=== PATIENT | male | born 1975 | race Caucasian/White ===

== ENCOUNTER 2016-06-29 15:02 | Emergency (ER) | payer OTHER ==
[2016-06-29 15:10] VITALS: RESP 18
--- NOTE | 2016-06-29 15:20 | ED ---
General Adult HPI - General Chief complaint: Skin/Abscess/Foreign Body Stated complaint: [facility] - PUNCTURE WOUND Time Seen by Provider: 06/29/16 15:06 Source: patient, RN notes reviewed Mode of arrival: EMS Limitations: no limitations - History of Present Illness Initial comments: Patient is a 41-year-old male who presents emergency room today with a chief complaint of a puncture wound to the left hand. 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 Patient does admit that his tetanus is up-to-date. He does admit that he is right-handed. He does admits to pain locally to the left hand area. He denies any other complaints or associated symptoms at this time. Patient denies any recent fever, chills, shortness of breath, chest pain, back pain, abdominal pain, nausea or vomiting, numbness or tingling, dysuria or hematuria, constipation or diarrhea, headaches or visual changes, or any other complaints. - Related Data Previous Rx's Medication Instructions Recorded Ciprofloxacin HCl [Cipro] 500 mg PO Q12HR #20 day 06/29/16 Hydrocodone/Acetaminophen [Nunda 1 each PO Q6HR PRN #6 tab 06/29/16 5-325] Allergies Allergy/AdvReac Type Severity Reaction Status Date / Time codeine Allergy Nausea & Verified 06/29/16 15:40 Vomiting Penicillins AdvReac Unknown Verified 06/29/16 15:40 Review of Systems ROS Statement: Those systems with pertinent positive or pertinent negative responses have been documented in the HPI. ROS Other: All systems not noted in ROS Statement are negative. Past Medical History Additional Past Medical History / Comment(s): migraines History of Any Multi-Drug Resistant Organisms: None Reported Past Surgical History: No Surgical Hx Reported Past Psychological History: No Psychological Hx Reported Smoking Status: Current every day smoker Past Alcohol Use History: Occasional Past Drug Use History: None Reported General Exam - General Exam Comments Initial Comments: General: The patient is awake and alert, in no distress, and does not appear acutely ill. Neck: The neck is supple, there is no tenderness or JVD. Cardiovascular: There is a regular rate and rhythm. No murmur, rub or gallop is appreciated. Respiratory: Lungs are clear to auscultation, respirations are non-labored, breath sounds are equal. No wheezes, stridor, rales, or rhonchi. Musculoskeletal: shows full range of motion. Sensation intact. Cap refill less than 2 seconds. Pulses equal bilaterally 2+. Strength 5/5 in all areas. Neurological: A&O x 3. CN II-XII intact, There are no obvious motor or sensory deficits. Coordination appears grossly intact. Speech is normal. Skin: patient does have a 1 cm round puncture wound to the webspace between the first and second digit of the left hand. No active bleeding. Psychiatric: Normal mood and affect. Limitations: no limitations Course Vital Signs 06/29/16 15:06 Temperature 97.5 F L Pulse Rate 84 Respiratory 18 Rate Blood Pressure 133/65 O2 Sat by Pulse 99 Oximetry Medical Decision Making - Medical Decision Making patient's x-ray reviewed does show possible foreign body. No acute fracture dislocation. Patient does have puncture wound between the first and second digit. Patient's wound was irrigated here in the emergency room by nursing staff and closed with Steri-Strips. Case discussed in detail with attending physician Dr. Woodward. At this time patient will be recommended to follow-up with orthopedics tomorrow for possible foreign body removal and further evaluation. Patient will be started on antibiotics in the emergency room does have an ALLERGY to penicillins will be given a prescription for Cipro. Advised return for any other concerns. He states understanding and is in agreement. Disposition Clinical Impression: Puncture wound Disposition: HOME SELF-CARE Condition: Good Instructions: Puncture Wound (ED) Additional Instructions: Please use medication as discussed. Please follow-up with orthopedics tomorrow. Please return to emergency room if the symptoms increase or worsen or for any other concerns. Prescriptions: Ciprofloxacin HCl [Cipro] 500 mg PO Q12HR #20 day Hydrocodone/Acetaminophen [Nunda 5-325] 1 each PO Q6HR PRN #6 tab PRN Reason: Pain Referrals: None,Stated [Primary Care Provider] - 1-2 days Yuri Hall DO [Doctor of Osteopathic Medicine] - 1-2 days Time of Disposition: 16:17
--- NOTE | 2016-06-29 15:33 | XR ---
EXAMINATION TYPE: XR hand complete LT DATE OF EXAM: 06/29/2016 3:25 PM CLINICAL HISTORY: Puncture injury with pain. TECHNIQUE: Frontal, lateral and oblique images of the left hand are obtained. COMPARISON: None. FINDINGS: There is no acute fracture/dislocation evident in the left hand. The joint spaces in the l eft hand appear within normal limits. Lucency consistent with air correlates with history of puncture injury is seen in soft tissues near level of first and second metacarpals. On oblique view cannot ex clude 3 mm curvilinear foreign body just lateral to the second metacarpal. IMPRESSION: As above .
[2016-06-29 16:34] VITALS: BP 131/84; PULSE 57; TEMP 98.3
== END 2016-06-29 16:34 | disposition home or self-care (01) ==
LOC: EC 15:02
DX: S61.432A Puncture wound without foreign body of left hand, initial encounter (principal); F17.200 Nicotine dependence, unspecified, uncomplicated; Z88.0 Allergy status to penicillin; Z88.5 Allergy status to narcotic agent; W23.0XXA Caught, crushed, jammed, or pinched between moving objects, initial encounter; Y99.0 Civilian activity done for income or pay
CPT/HCPCS: 99283

== ENCOUNTER → 2016-07-06 | Outpatient (CLI) | payer OTHER ==
--- NOTE | 2016-07-06 08:28 | CT ---
EXAMINATION TYPE: CT hand LT wo con DATE OF EXAM: 07/06/2016 7:51 AM COMPARISON: Plain films of the left hand dated 06/29/2016 HISTORY: foreign body CT DLP: 106 mGycm Automated exposure control for dose reduction was used. TECHNIQUE: Unenhanced CT of the left hand was performed with bone and soft tissue window settings sub mitted in the axial coronal and sagittal planes. At a separate workstation 3-D reconstruction was als o seen. FINDINGS: 5 mm radiopaque density is noted directly adjacent to the third metacarpal palmar aspect compatible w ith the performed body. No additional radiopaque foreign bodies identified. There is no evidence for fracture. Previously noted puncture wounds demonstrate interval healing. No unusual collections are e vident. IMPRESSION: 5 MM RADIOPAQUE FOREIGN BODY DISCUSSED ABOVE.
== END | disposition home or self-care (01) ==
LOC: RADCTMAIN 07:25
PROVIDERS: ATTEND Orthopaedic Surgery
DX: S61.442A Puncture wound with foreign body of left hand, initial encounter (principal)

== ENCOUNTER 2018-02-17 17:16 | Emergency (ER) | payer BC ==
[2018-02-17] MEDS ORDERED: diphenhydrAMINE 50 MG/ML 1 ML VIAL IVP STA (17:34)
[2018-02-17] MEDS ORDERED: SODIUM CHLORIDE 0.9% 1,000 ML IV STA (17:34)
[2018-02-17] MEDS ORDERED: PROCHLORPERAZINE 10 MG TAB PO STA (17:36)
[2018-02-17 18:29] LABS: Basophils % (A) 0 %; Eosinophils # (A) 0.1 k/uL (0-0.7); Eosinophils % (A) 1 %; HCT 47.2 % (39.0-53.0); HGB 15.4 gm/dL (13.0-17.5); Lymphocytes # (A) 0.8 k/uL (1.0-4.8); Lymphocytes % (A) 7 %; MCH 33.5 pg (25.0-35.0); MCHC 32.7 g/dL (31.0-37.0); MCV 102.5 fL (80.0-100.0); Macrocytosis Slight; Mean Platelet Volume 7.1; Monocytes # (A) 0.4 k/uL (0-1.0); Monocytes % (A) 4 %; Neutrophils % (A) 88 %; Platelet Count 232 k/uL (150-450); RDW 12.6 % (11.5-15.5); WBC 11.4 k/uL (3.8-10.6)
[2018-02-17 18:39] LABS: Anion Gap 7 mmol/L; Blood Urea Nitrogen 12 mg/dL (9-20); Calcium 9.8 mg/dL (8.4-10.2); Carbon Dioxide 24 mmol/L (22-30); Chloride 108 mmol/L (98-107); Glucose 101 mg/dL (74-99); Magnesium 1.8 mg/dL (1.6-2.3); Potassium 4.6 mmol/L (3.5-5.1); Sodium 139 mmol/L (137-145)
[2018-02-17 19:08] LABS: Partial Thromboplastin Time 23.9 sec (22.0-30.0); Prothrombin Time 10.3 sec (9.0-12.0)
--- NOTE | 2018-02-17 19:29 | CT ---
EXAMINATION TYPE: CT brain wo con DATE OF EXAM: 02/17/2018 COMPARISON: 01/02/1712 HISTORY: Headache, nausea, vomiting. CT DLP: 1126 mGycm. Automated Exposure Control for Dose Reduction was Utilized. TECHNIQUE: CT scan of the head is performed without contrast. FINDINGS: Ventricles and sulci appear normal. There is no mass effect nor midline shift. There is no sign of intracranial hemorrhage. Calvarium is intact. IMPRESSION: Negative CT scan of the brain. No change.
--- NOTE | 2018-02-17 19:44 | ED ---
Headache HPI - General Chief Complaint: Headache Stated Complaint: headache/vomiting Time Seen by Provider: 02/17/18 17:24 Mode of arrival: ambulatory Limitations: no limitations - History of Present Illness Initial Comments: Patient is a 42-year-old male presenting for headache. The patient states that it started on Sunday and was more of a gradual onset. He has not tried any medications and this is secondary to nausea or vomiting. He states that he stood up today and passed out and he states that he is unsure how long it lasted and that the headache is a posterior sensation of this headache consistent with prior headaches in his been constant. He denies any chest pain or shortness of breath as well. He also states that he has a history of brain aneurysms with bleeding in the past that was detected by lumbar puncture. - Related Data Home Medications Medication Instructions Recorded Confirmed No Known Home Medications 02/17/18 02/17/18 Allergies Allergy/AdvReac Type Severity Reaction Status Date / Time acetaminophen Allergy Unknown Verified 02/17/18 17:37 [From Darvocet-N] codeine Allergy Nausea & Verified 02/17/18 17:37 Vomiting propoxyphene Allergy Unknown Verified 02/17/18 17:37 [From Darvocet-N] Penicillins AdvReac Unknown Verified 02/17/18 17:37 Review of Systems ROS Statement: Those systems with pertinent positive or pertinent negative responses have been documented in the HPI. Constitutional: Negative for chills, fatigue and fever. HENT: Negative for congestion. Respiratory: Negative for chest tightness, shortness of breath and wheezing. Negative for cough Cardiovascular: Negative for chest pain and palpitations. Positive for syncope Gastrointestinal: Negative for abdominal pain. Negative for abdominal distention , diarrhea, positive for nausea and vomiting. Genitourinary: Negative for dysuria. Musculoskeletal: Negative for back pain, neck pain and neck stiffness. Skin: Negative for color change. Neurological: Negative for dizziness, speech difficulty, weakness and light- headedness. Positive for headache Psychiatric/Behavioral: Negative for agitation and confusion. Negative for anxiety ROS Other: All systems not noted in ROS Statement are negative. Past Medical History Additional Past Medical History / Comment(s): migraines History of Any Multi-Drug Resistant Organisms: None Reported Past Surgical History: No Surgical Hx Reported Past Psychological History: No Psychological Hx Reported Smoking Status: Current every day smoker Past Alcohol Use History: Occasional Past Drug Use History: None Reported General Exam - General Exam Comments Initial Comments: Constitutional: Pt is oriented to person, place, and time. Pt appears well- developed and well-nourished. No distress. HENT: Head: Normocephalic and atraumatic. Eyes: EOM are normal. Neck: Normal range of motion. Neck supple. Cardiovascular: Normal rate, regular rhythm, S1 normal, S2 normal and normal heart sounds. Exam reveals no gallop and no friction rub. No murmur heard. Pulmonary/Chest: Effort normal and breath sounds normal. No tachypnea and no bradypnea. No respiratory distress. No wheezes or rales noted. Abdominal: Soft. Bowel sounds are normal. Pt exhibits no shifting dullness, no distension, no pulsatile liver, no fluid wave, no abdominal bruit and no ascites. There is no tenderness. There is no rigidity, no rebound, no guarding, no tenderness at McBurney's point and negative Thompson's sign. Musculoskeletal: Normal range of motion. Neurological: Pt is alert and oriented to person, place, and time. No cranial nerve deficit. Skin: Skin is warm and dry. No rash noted. Pt is not diaphoretic. No erythema. No pallor. Psychiatric: Pt has a normal mood and affect. Pt behavior is normal. Thought content normal. Limitations: no limitations Course Vital Signs 02/17/18 02/17/18 02/17/18 17:20 20:49 21:27 Temperature 97.8 F 98.0 F Pulse Rate 88 61 74 Respiratory 20 18 18 Rate Blood Pressure 138/78 121/85 137/93 O2 Sat by Pulse 99 99 97 Oximetry Medical Decision Making - Medical Decision Making Laboratory studies showed that there is no significant electrolyte derangements and from a cardiac standpoint, troponin was negative and EKG had no arrhythmia findings. CTA of the head and neck were also negative for acute pathology. However, there is significant concern that the patient could still have intracranial bleeding as he reports to having had this in the past. Patient was advised that lumbar puncture would be necessary and he currently declined. Nonetheless, because there is not neurologic coverage here at this facility, patient needed to be transferred. Case is discussed with physician Dr. Ahuja at [facility] who kindly accepted transfer. Patient will be transferred by ambulance. - Lab Data Result diagrams: 02/17/18 18:14 02/17/18 18:14 Lab Results 02/17/18 02/17/18 02/17/18 Range/Units 18:14 18:14 18:14 WBC 11.4 H (3.8-10.6) k/uL RBC 4.60 (4.30-5.90) m/uL Hgb 15.4 (13.0-17.5) gm/dL Hct 47.2 (39.0-53.0) % MCV 102.5 H (80.0-100.0) fL MCH 33.5 (25.0-35.0) pg MCHC 32.7 (31.0-37.0) g/dL RDW 12.6 (11.5-15.5) % Plt Count 232 (150-450) k/uL Neutrophils % 88 % Lymphocytes % 7 % Monocytes % 4 % Eosinophils % 1 % Basophils % 0 % Neutrophils # 10.0 H (1.3-7.7) k/uL Lymphocytes # 0.8 L (1.0-4.8) k/uL Monocytes # 0.4 (0-1.0) k/uL Eosinophils # 0.1 (0-0.7) k/uL Basophils # 0.0 (0-0.2) k/uL Macrocytosis Slight PT (9.0-12.0) sec INR (<1.2) APTT (22.0-30.0) sec Sodium 139 (137-145) mmol/L Potassium 4.6 (3.5-5.1) mmol/L Chloride 108 H (98-107) mmol/L Carbon Dioxide 24 (22-30) mmol/L Anion Gap 7 mmol/L BUN 12 (9-20) mg/dL Creatinine 0.85 (0.66-1.25) mg/dL Est GFR (CKD-EPI)AfAm >90 (>60 ml/min/1.73 sqM) Est GFR (CKD-EPI)NonAf >90 (>60 ml/min/1.73 sqM) Glucose 101 H (74-99) mg/dL Calcium 9.8 (8.4-10.2) mg/dL Magnesium 1.8 (1.6-2.3) mg/dL Troponin I <0.012 (0.000-0.034) ng/mL 02/17/18 Range/Units 18:45 WBC (3.8-10.6) k/uL RBC (4.30-5.90) m/uL Hgb (13.0-17.5) gm/dL Hct (39.0-53.0) % MCV (80.0-100.0) fL MCH (25.0-35.0) pg MCHC (31.0-37.0) g/dL RDW (11.5-15.5) % Plt Count (150-450) k/uL Neutrophils % % Lymphocytes % % Monocytes % % Eosinophils % % Basophils % % Neutrophils # (1.3-7.7) k/uL Lymphocytes # (1.0-4.8) k/uL Monocytes # (0-1.0) k/uL Eosinophils # (0-0.7) k/uL Basophils # (0-0.2) k/uL Macrocytosis PT 10.3 (9.0-12.0) sec INR 1.0 (<1.2) APTT 23.9 (22.0-30.0) sec Sodium (137-145) mmol/L Potassium (3.5-5.1) mmol/L Chloride (98-107) mmol/L Carbon Dioxide (22-30) mmol/L Anion Gap mmol/L BUN (9-20) mg/dL Creatinine (0.66-1.25) mg/dL Est GFR (CKD-EPI)AfAm (>60 ml/min/1.73 sqM) Est GFR (CKD-EPI)NonAf (>60 ml/min/1.73 sqM) Glucose (74-99) mg/dL Calcium (8.4-10.2) mg/dL Magnesium (1.6-2.3) mg/dL Troponin I (0.000-0.034) ng/mL - EKG Data EKG Comments: EKG shows normal sinus rhythm with a rate of 62 bpm, MD interval 160, QRS 114, QTC 387. There are no significant ST depressions or elevations. Disposition Clinical Impression: Syncope, Headache Disposition: OTHER INSTITUTION NOT DEFINED Condition: Good Instructions: Acute Headache (ED) Referrals: Jonathan Torres MD [Primary Care Provider] - 1-2 days - Out of Hospital Transfer - Req. Specs Out of Hospital Transfer - Requested Specifics: Other Emergency Center ([facility])
--- NOTE | 2018-02-17 20:38 | CT ---
EXAMINATION TYPE: CT angio head neck DATE OF EXAM: 02/17/2018 HISTORY: Headache, nausea, vomiting. COMPARISON: CT DLP: 478.2 mGycm. Automated Exposure Control for Dose Reduction was Utilized. TECHNIQUE: CTA scan of the neck is performed with IV Contrast, patient injected with 65 mL of Isovue 370, axial images are obtained, coronal and sagittal reformatted images are reviewed. Three-D recons tructed images are created on an independent workstation and reviewed. FINDINGS: There is normal branching pattern of the great vessels on the aortic arch. There is bilateral patency of the subclavian arteries. There is arterial flow in the common internal and external carotid arter ies bilaterally. Carotid artery bifurcations are widely patent. There is symmetric arterial opacifica tion of the vertebral arteries. There is no evidence of carotid or vertebral artery aneurysm or disse ction. There is patency of the vertebrobasilar artery system. There is arterial flow in the anterior middle and posterior cerebral arteries. There is normal contra st opacification of the venous sinuses. I see no evidence of intracranial stenosis. There is no sign of intracranial aneurysm or neovascularity. IMPRESSION: Normal CT angiogram of the neck. Normal CT angiogram of the brain.
[2018-02-17 20:50] VITALS: RESP 18
[2018-02-17 21:28] VITALS: BP 137/93; PULSE 74; TEMP 98
== END 2018-02-17 21:40 | disposition other institution (70) ==
LOC: EC 17:16
DX: R51 Headache (principal); R55 Syncope and collapse; F17.200 Nicotine dependence, unspecified, uncomplicated; Z91.19 Patient's noncompliance with other medical treatment and regimen; Z88.0 Allergy status to penicillin; Z88.5 Allergy status to narcotic agent; Z88.6 Allergy status to analgesic agent; Z86.79 Personal history of other diseases of the circulatory system
CPT/HCPCS: 36415; 93005; 80048; 83735; 84484; 85025; 85610; 85730; 70496; 70450; 70498; 99285; 96374; 96361 ×3; S0183; J1200; Q9967

== ENCOUNTER 2019-12-21 10:21 | Emergency (ER) | payer BC ==
[2019-12-21 10:38] VITALS: RESP 14
[2019-12-21] MEDS ORDERED: METOCLOPRAMIDE 5 MG/ML 2 ML VIAL IVP STA (10:41)
[2019-12-21] MEDS ORDERED: diphenhydrAMINE 50 MG/ML 1 ML VIAL IVP STA (10:41)
[2019-12-21] MEDS ORDERED: HYDROmorphone 0.5 MG/0.5 ML SYRINGE IVP STA ×2 (10:41→12:08)
--- NOTE | 2019-12-21 10:48 | ED ---
Headache HPI - General Chief Complaint: Headache Stated Complaint: Nausea,Vomiting Time Seen by Provider: 12/21/19 10:29 Mode of arrival: EMS Limitations: no limitations - History of Present Illness Initial Comments: 44yo male with history of "leaking vessel" 2007 diagnosed at [facility], normal CTA 2019 without aneursym with normal work up at [facility] in 2019 after transfer for headache, hx of chronic migraines since age 19 presenting to the ER today for cc of headache, states that started gradually yesterday. Pt states that yesteday he woke up with neck tension he states that how all of his headaches start, denies anterior neck pain, or severe pain/stiffness. Patient states just feel like muscle tension. Patient states then gradually the headache began and worsened throughout the day. Patient states when he headache persisted and was similar in characteristic to the headache he experienced last year and presented to the ER he came to the ER for treatment. Endorses nausea, denies vision change. Admits to light sensitivity. Patient denies double vision Patient denies weakness, sensation deficits, facial asymmetry. Patient denies additional complaints. Upon arrival he appears uncomfortable, but not in distress-light dim as patient is light sensitive. Given zofran by EMS. - Related Data Home Medications Medication Instructions Recorded Confirmed No Known Home Medications 12/21/19 12/21/19 Allergies Allergy/AdvReac Type Severity Reaction Status Date / Time acetaminophen Allergy Unknown Verified 12/21/19 12:01 [From Darvocet-N] codeine Allergy Nausea & Verified 12/21/19 12:01 Vomiting propoxyphene Allergy Unknown Verified 12/21/19 12:01 [From Darvocet-N] Penicillins AdvReac Unknown Verified 12/21/19 12:01 Review of Systems ROS Statement: Those systems with pertinent positive or pertinent negative responses have been documented in the HPI. ROS Other: All systems not noted in ROS Statement are negative. Past Medical History Additional Past Medical History / Comment(s): migraines History of Any Multi-Drug Resistant Organisms: None Reported Past Surgical History: No Surgical Hx Reported Past Psychological History: No Psychological Hx Reported Smoking Status: Former smoker Past Alcohol Use History: Occasional Past Drug Use History: None Reported General Exam - General Exam Comments Initial Comments: General: The patient is awake and alert, in no distress Eye: +3 mm pupils are equal, round and reactive to light, extra-ocular movements are intact. No nystagmus. There is normal conjunctiva bilaterally. No signs of icterus. Ears, nose, mouth and throat: There are moist mucous membranes and no oral lesions. Neck: The neck is supple, there is no tenderness or JVD. No nuchal rigidity Cardiovascular: There is a regular rate and rhythm. No murmur, rub or gallop is appreciated. Respiratory: Lungs are clear to auscultation, respirations are non-labored, breath sounds are equal. No wheezes, stridor, rales, or rhonchi. Gastrointestinal: Soft, non-distended, non-tender abdomen without masses or organomegaly noted. There is no rebound or guarding present. Musculoskeletal: Normal ROM, no tenderness. Strength 5/5 of the upper or lower extremities equal comparison bilaterally. Sensation intact of the upper or lower extremities equal comparison bilaterally. Radial pulses equal bilaterally 2+. Neurological: A&O x 3. CN II-XII intact, no pronator drift, finger to nose with a coordinated gait without ataxia. There are no obvious motor or sensory deficits. Coordination appears grossly intact. Speech is normal. Skin: Skin is warm and dry and no rashes or lesions are noted. Psychiatric: Cooperative, appropriate mood & affect, normal judgment. Limitations: no limitations Course Vital Signs 12/21/19 12/21/19 12/21/19 10:23 12:04 12:55 Temperature 98.0 F 98.0 F 97.6 F Pulse Rate 64 57 L 53 L Respiratory 14 14 14 Rate Blood Pressure 133/84 121/77 119/53 O2 Sat by Pulse 99 98 98 Oximetry 12/21/19 12/21/19 13:47 14:11 Temperature 97.6 F Pulse Rate 69 58 L Respiratory 14 14 Rate Blood Pressure 118/79 122/80 O2 Sat by Pulse 98 96 Oximetry - Reevaluation(s) Reevaluation #1: 1st reevaluation: down to 06/21 from a "01/12" 12/21/19 Reevaluation #2: headache 05/22 after toradol, pt requesting discharge, stating he doesnt want LP or to be transferred states this "happens every time" 12/21/19 Medical Decision Making - Medical Decision Making labs stable. CT (-) x 2. No focal deficits. Hx chronic headaches. Discussed hx wiht Dr. Baker at this time given patient refuses transfer, he prefers to go home/does not want admission for symptoms control, has hx of migraines, improvement in ER with (-) images/refusal LP we feel patient is stable for discharge. - Lab Data Result diagrams: 12/21/19 10:47 12/21/19 10:47 Lab Results 12/21/19 12/21/19 12/21/19 Range/Units 10:47 10:47 10:47 WBC 11.6 H (3.8-10.6) k/uL RBC 4.32 (4.30-5.90) m/uL Hgb 14.9 (13.0-17.5) gm/dL Hct 45.1 (39.0-53.0) % MCV 104.3 H (80.0-100.0) fL MCH 34.6 (25.0-35.0) pg MCHC 33.1 (31.0-37.0) g/dL RDW 12.4 (11.5-15.5) % Plt Count 232 (150-450) k/uL Neutrophils % 82 % Lymphocytes % 10 % Monocytes % 6 % Eosinophils % 0 % Basophils % 0 % Neutrophils # 9.4 H (1.3-7.7) k/uL Lymphocytes # 1.2 (1.0-4.8) k/uL Monocytes # 0.7 (0-1.0) k/uL Eosinophils # 0.0 (0-0.7) k/uL Basophils # 0.0 (0-0.2) k/uL Macrocytosis Slight PT 10.1 (9.0-12.0) sec INR 1.0 (<1.2) APTT 24.1 (22.0-30.0) sec Sodium 138 (137-145) mmol/L Potassium 3.6 (3.5-5.1) mmol/L Chloride 106 (98-107) mmol/L Carbon Dioxide 23 (22-30) mmol/L Anion Gap 9 mmol/L BUN 21 H (9-20) mg/dL Creatinine 0.82 (0.66-1.25) mg/dL Est GFR (CKD-EPI)AfAm >90 (>60 ml/min/1.73 sqM) Est GFR (CKD-EPI)NonAf >90 (>60 ml/min/1.73 sqM) Glucose 125 H (74-99) mg/dL Calcium 9.2 (8.4-10.2) mg/dL Total Bilirubin 1.0 (0.2-1.3) mg/dL AST 29 (17-59) U/L ALT 46 (4-49) U/L Alkaline Phosphatase 85 (38-126) U/L Total Protein 7.2 (6.3-8.2) g/dL Albumin 4.4 (3.5-5.0) g/dL Disposition Clinical Impression: Headache, Hx of migraine headaches Disposition: HOME SELF-CARE Condition: Good Instructions (If sedation given, give patient instructions): Acute Headache (ED) Additional Instructions: Please use medication as discussed. Please follow-up with family doctor in the next 2 days. Please return to emergency room if the symptoms increase or worsen or for any other concerns. Is patient prescribed a controlled substance at d/c from ED?: No Referrals: Jonathan Torres MD [Primary Care Provider] - 1-2 days Time of Disposition: 14:16
[2019-12-21 11:08] LABS: Partial Thromboplastin Time 24.1 sec (22.0-30.0); Prothrombin Time 10.1 sec (9.0-12.0)
[2019-12-21 11:15] LABS: ALT 46 U/L (4-49); AST 29 U/L (17-59); African American GFR (CKD) >90 (>60 ml/min/1.73 sqM); Albumin 4.4 g/dL (3.5-5.0); Alkaline Phosphatase 85 U/L (38-126); Anion Gap 9 mmol/L; Blood Urea Nitrogen 21 mg/dL (9-20); Calcium 9.2 mg/dL (8.4-10.2); Carbon Dioxide 23 mmol/L (22-30); Chloride 106 mmol/L (98-107); Glucose 125 mg/dL (74-99); Non-African American GFR(CKD) >90 (>60 ml/min/1.73 sqM); Potassium 3.6 mmol/L (3.5-5.1); Sodium 138 mmol/L (137-145); Total Protein 7.2 g/dL (6.3-8.2)
[2019-12-21 11:33] LABS: Basophils % (A) 0 %; Eosinophils % (A) 0 %; HCT 45.1 % (39.0-53.0); HGB 14.9 gm/dL (13.0-17.5); Lymphocytes # (A) 1.2 k/uL (1.0-4.8); Lymphocytes % (A) 10 %; MCH 34.6 pg (25.0-35.0); MCHC 33.1 g/dL (31.0-37.0); MCV 104.3 fL (80.0-100.0); Macrocytosis Slight; Mean Platelet Volume 7.4; Monocytes # (A) 0.7 k/uL (0-1.0); Monocytes % (A) 6 %; Neutrophils # (A) 9.4 k/uL (1.3-7.7); Neutrophils % (A) 82 %; Platelet Count 232 k/uL (150-450); RBC 4.32 m/uL (4.30-5.90); RDW 12.4 % (11.5-15.5); WBC 11.6 k/uL (3.8-10.6)
--- NOTE | 2019-12-21 11:55 | CT ---
EXAMINATION TYPE: CT brain wo con DATE OF EXAM: 12/21/2019 COMPARISON: None HISTORY: History of "vessel leak', Headache for 24 hourss, chronic headaches CT DLP: [address] of the brain was performed. The ventricles, basal cisterns and sulci overlying the cerebral convexities demonstrate a normal appe arance. There is no evidence for intracranial hemorrhage or sulcal effacement. No mass effects are seen. Osseous calvarium is intact. There is evidence of mild chronic sinusitis. If symptoms persist consider MRI as clinically warranted. IMPRESSION: 1. No acute intracranial process is seen at this time.
--- NOTE | 2019-12-21 12:56 | CT ---
EXAMINATION TYPE: CT angio head neck DATE OF EXAM: 12/21/2019 COMPARISON: None HISTORY: Headache CONTRAST: Performed with IV Contrast, patient injected with 65 mL of Isovue 370. Combination Contrast CTA cervical carotids and [place] CTA cervical carotids with 3-D recons truction Contrast CTA of the cervical carotids was performed 3-D reconstruction imaging obtained at a separate workstation. Right carotid system: Mild plaque is seen of the right common carotid artery. There is mild plaque a lso noted at the carotid bulb and proximal ICA. No significant diameter reduction. ECA is patent. Right vertebral artery appears unremarkable. Left carotid system: Mild plaque is seen of the left common carotid artery. There is mild plaque als o noted at the carotid bulb and proximal ICA. No significant diameter reduction. ECA is patent. Lef t vertebral artery appears unremarkable. IMPRESSION: 1. No significant diameter reduction to account for the patient's symptoms. CTA [place] with 3-D reconstruction Contrast CTA of the [place] was performed 3-D reconstruction imaging obtained at a separate workstation. Vertebrobasilar system as well as intracranial portions of the internal carotid arteries and their [place] tributaries are patent. I do not see evidence for sizable aneurysm or vascular malformation. Pl ease note MRI provides greater sensitivity and specificity. Visualized brain appears grossly unremar kable. IMPRESSION: 1. No significant abnormality.
[2019-12-21 12:57] VITALS: TEMP 97.6
[2019-12-21] MEDS ORDERED: KETOROLAC 15 MG/ML 1 ML VIAL IVP STA (13:41)
[2019-12-21 14:13] VITALS: BP 122/80; PULSE 58
[2019-12-21] MEDS ORDERED: ONDANSETRON 4 MG ODT STARTER PACK 2 TAB BTL PO STA (14:16)
== END 2019-12-21 14:31 | disposition home or self-care (01) ==
LOC: EC 10:21
DX: R51.9 Headache, unspecified (principal); R11.2 Nausea with vomiting, unspecified; Z86.69 Personal history of other diseases of the nervous system and sense organs; Z88.5 Allergy status to narcotic agent; Z88.6 Allergy status to analgesic agent; Z88.8 Allergy status to other drugs, medicaments and biological substances; Z88.0 Allergy status to penicillin; Z87.891 Personal history of nicotine dependence
CPT/HCPCS: 36415; 80053; 85025; 85610; 85730; 70496; 70450; 70498; 99285; 96374; 96375 ×3; 96376; J1200; J2765; J1885; S0119; J1170; Q9967

== ENCOUNTER 2019-12-22 12:47 | Emergency (ER) | payer BC ==
[2019-12-22 12:57] VITALS: RESP 18; TEMP 98.1
[2019-12-22] MEDS ORDERED: KETOROLAC 15 MG/ML 1 ML VIAL IVP STA (13:12)
[2019-12-22] MEDS ORDERED: METOCLOPRAMIDE 5 MG/ML 2 ML VIAL IVP STA (13:12)
[2019-12-22] MEDS ORDERED: diphenhydrAMINE 50 MG/ML 1 ML VIAL IVP STA (13:12)
[2019-12-22] MEDS ORDERED: HYDROmorphone 0.5 MG/0.5 ML SYRINGE IVP STA (13:12)
[2019-12-22] MEDS ORDERED: SODIUM CHLORIDE 0.9% 1,000 ML IV ONE (13:12)
--- NOTE | 2019-12-22 13:18 | ED ---
General Adult HPI - General Chief complaint: Headache Stated complaint: Migraine Time Seen by Provider: 12/22/19 13:06 Source: patient, EMS, RN notes reviewed, old records reviewed Mode of arrival: EMS Limitations: no limitations - History of Present Illness Initial comments: 44-year-old male with long standing history of migraine headache presents for evaluation of migraine headache typical in onset to his normal headaches. Began as a occipital headache and is progressed to be more global. He reports significant nausea and vomiting associated with this headache. He was seen in the emergency department yesterday and was given symptomatic treatment. He had an appointment with a neurologist however this Canceled secondary to scheduling issue. He states he's had migraine headaches since time he was 13 years old and this is similar in character although more severe than typical. No fever. No focal weakness. - Related Data Home Medications Medication Instructions Recorded Confirmed No Known Home Medications 12/21/19 12/22/19 Allergies Allergy/AdvReac Type Severity Reaction Status Date / Time codeine Allergy Nausea & Verified 12/22/19 14:07 Vomiting propoxyphene Allergy Unknown Verified 12/22/19 14:07 [From Darvocet-N] Penicillins AdvReac Unknown Verified 12/22/19 14:07 Review of Systems ROS Statement: Those systems with pertinent positive or pertinent negative responses have been documented in the HPI. ROS Other: All systems not noted in ROS Statement are negative. Past Medical History Additional Past Medical History / Comment(s): migraines History of Any Multi-Drug Resistant Organisms: None Reported Past Surgical History: No Surgical Hx Reported Past Psychological History: No Psychological Hx Reported Smoking Status: Former smoker Past Alcohol Use History: Occasional Past Drug Use History: None Reported General Exam Limitations: no limitations General appearance: alert, in no apparent distress Head exam: Present: atraumatic, normocephalic Eye exam: Present: normal appearance, PERRL ENT exam: Present: normal exam Neck exam: Present: normal inspection. Absent: tenderness, meningismus Respiratory exam: Present: normal lung sounds bilaterally. Absent: respiratory distress, wheezes Cardiovascular Exam: Present: regular rate, normal rhythm GI/Abdominal exam: Present: soft. Absent: distended, tenderness, guarding Extremities exam: Present: normal inspection, normal capillary refill. Absent: pedal edema Neurological exam: Present: alert, oriented X3, CN II-XII intact. Absent: motor sensory deficit Psychiatric exam: Present: normal affect, normal mood Skin exam: Present: warm, dry, intact. Absent: cyanosis, diaphoretic Course Vital Signs 12/22/19 12/22/19 12:54 13:58 Temperature 98.1 F Pulse Rate 61 49 L Respiratory 18 18 Rate Blood Pressure 127/70 114/72 O2 Sat by Pulse 97 98 Oximetry EKG Findings - EKG Comments: EKG Findings:: EKG: Sinus bradycardia, rate 49, KS interval 160, QRS duration 90, QTC 373 Medical Decision Making - Medical Decision Making 44-year-old male presenting with migraine headache, similar to previous headaches in the past. No focal findings, stable vitals. IV is established, symptomatic treatment given as well as IV fluids. Patient has normal CBC, normal CMP. Given that this was a revisit for headache, did plan to admit this patient for symptomatic control and neurology consultation. Patient preferred to be discharged home. He states he was feeling best she's felt in several days. His mother was at bedside. Patient stating that he feels much better and wants to go home. - Lab Data Result diagrams: 12/22/19 13:28 12/22/19 13:28 Lab Results 12/22/19 12/22/19 12/22/19 Range/Units 13:28 13:28 14:11 WBC 11.4 H (3.8-10.6) k/uL RBC 4.25 L (4.30-5.90) m/uL Hgb 14.6 (13.0-17.5) gm/dL Hct 43.9 (39.0-53.0) % MCV 103.3 H (80.0-100.0) fL MCH 34.4 (25.0-35.0) pg MCHC 33.3 (31.0-37.0) g/dL RDW 12.2 (11.5-15.5) % Plt Count 233 (150-450) k/uL Neutrophils % 85 % Lymphocytes % 8 % Monocytes % 5 % Eosinophils % 1 % Basophils % 0 % Neutrophils # 9.7 H (1.3-7.7) k/uL Lymphocytes # 0.9 L (1.0-4.8) k/uL Monocytes # 0.6 (0-1.0) k/uL Eosinophils # 0.1 (0-0.7) k/uL Basophils # 0.0 (0-0.2) k/uL Macrocytosis Slight Sodium 138 (137-145) mmol/L Potassium 3.4 L (3.5-5.1) mmol/L Chloride 106 (98-107) mmol/L Carbon Dioxide 27 (22-30) mmol/L Anion Gap 5 mmol/L BUN 19 (9-20) mg/dL Creatinine 0.78 (0.66-1.25) mg/dL Est GFR (CKD-EPI)AfAm >90 (>60 ml/min/1.73 sqM) Est GFR (CKD-EPI)NonAf >90 (>60 ml/min/1.73 sqM) Glucose 147 H (74-99) mg/dL Calcium 9.2 (8.4-10.2) mg/dL Magnesium 1.9 (1.6-2.3) mg/dL Total Bilirubin 0.9 (0.2-1.3) mg/dL AST 25 (17-59) U/L ALT 40 (4-49) U/L Alkaline Phosphatase 70 (38-126) U/L Troponin I <0.012 (0.000-0.034) ng/mL Total Protein 6.7 (6.3-8.2) g/dL Albumin 4.0 (3.5-5.0) g/dL Disposition Clinical Impression: Hx of migraine headaches, Headache Disposition: HOME SELF-CARE Condition: Fair Instructions (If sedation given, give patient instructions): Acute Headache (ED) Is patient prescribed a controlled substance at d/c from ED?: No Referrals: Jonathan Torres MD [Primary Care Provider] - 1-2 days Edith Villegas MD [REFERRING] - 1-2 days Time of Disposition: 15:24
[2019-12-22 13:45] LABS: Basophils % (A) 0 %; Eosinophils # (A) 0.1 k/uL (0-0.7); Eosinophils % (A) 1 %; HCT 43.9 % (39.0-53.0); HGB 14.6 gm/dL (13.0-17.5); Lymphocytes # (A) 0.9 k/uL (1.0-4.8); Lymphocytes % (A) 8 %; MCH 34.4 pg (25.0-35.0); MCHC 33.3 g/dL (31.0-37.0); MCV 103.3 fL (80.0-100.0); Macrocytosis Slight; Mean Platelet Volume 7.5; Monocytes # (A) 0.6 k/uL (0-1.0); Monocytes % (A) 5 %; Neutrophils # (A) 9.7 k/uL (1.3-7.7); Neutrophils % (A) 85 %; Platelet Count 233 k/uL (150-450); RBC 4.25 m/uL (4.30-5.90); RDW 12.2 % (11.5-15.5); WBC 11.4 k/uL (3.8-10.6)
[2019-12-22 14:06] LABS: ALT 40 U/L (4-49); AST 25 U/L (17-59); African American GFR (CKD) >90 (>60 ml/min/1.73 sqM); Alkaline Phosphatase 70 U/L (38-126); Anion Gap 5 mmol/L; Blood Urea Nitrogen 19 mg/dL (9-20); Calcium 9.2 mg/dL (8.4-10.2); Carbon Dioxide 27 mmol/L (22-30); Chloride 106 mmol/L (98-107); Glucose 147 mg/dL (74-99); Magnesium 1.9 mg/dL (1.6-2.3); Non-African American GFR(CKD) >90 (>60 ml/min/1.73 sqM); Potassium 3.4 mmol/L (3.5-5.1); Sodium 138 mmol/L (137-145); Total Bilirubin 0.9 mg/dL (0.2-1.3); Total Protein 6.7 g/dL (6.3-8.2)
[2019-12-22 15:27] VITALS: BP 112/66; PULSE 52
== END 2019-12-22 15:39 | disposition home or self-care (01) ==
LOC: EC 12:47
DX: R51.9 Headache, unspecified (principal); Z88.5 Allergy status to narcotic agent; Z88.0 Allergy status to penicillin; Z87.891 Personal history of nicotine dependence; Z86.69 Personal history of other diseases of the nervous system and sense organs
CPT/HCPCS: 36415; 93005; 80053; 83735; 84484; 85025; 99285; 96374; 96375 ×3; 96361 ×2; J1200; J2765; J1885; J1170